=== PATIENT | female | born 1985 ===

== ENCOUNTER 2022-02-25 14:57 | Outpatient (CLI) | payer OTHER | END 2022-02-25 16:15 | disposition home or self-care (01) | LOC: PRENATAL 14:57 | PROVIDERS: ATTEND Obstetrics & Gynecology Maternal & Fetal Medicine | DX: O36.80X0 Pregnancy with inconclusive fetal viability, not applicable or unspecified (principal); O09.519 Supervision of elderly primigravida, unspecified trimester; Z3A.14 14 weeks gestation of pregnancy ==

== ENCOUNTER 2022-04-09 13:09 | Outpatient (CLI) | payer OTHER | END 2022-04-09 14:25 | disposition home or self-care (01) | LOC: PRENATAL 13:09 | PROVIDERS: ATTEND Obstetrics & Gynecology Maternal & Fetal Medicine | DX: O35.0XX0 Maternal care for (suspected) central nervous system malformation in fetus, not applicable or unspecified (principal); O35.3XX0 Maternal care for (suspected) damage to fetus from viral disease in mother, not applicable or unspecified; O09.519 Supervision of elderly primigravida, unspecified trimester; Z3A.22 22 weeks gestation of pregnancy ==

== ENCOUNTER 2022-08-23 15:59 | Inpatient (IN) | payer OTHER ==
[~2022-08-23] VITALS: Ht 152.4 cm; Wt 79.8 kg
[2022-08-23] MEDS ORDERED: ATABEX DHA 200200 MG PO (16:38)
[2022-08-23] MEDS ORDERED: PRIMROSE OIL PO (16:39)
[2022-08-23] MEDS ORDERED: GALZIN25 MG PO (16:39)
[2022-08-27] MEDS ORDERED: Procardia Xl 30MG TA PO (14:34)
== END 2022-08-27 14:57 | disposition home or self-care (01) | DRG 788 ==
LOC: LDR 15:59 → OB/GYN 15:59 → LDR 08-24 05:13 → OB/GYN 08-24 22:27
PROVIDERS: ADMIT Student in an Organized Health Care Education/Training Program; ATTEND Student in an Organized Health Care Education/Training Program
PROC: 4A1HXCZ Monitoring of Products of Conception, Cardiac Rate, External Approach (ICD-10-PCS; 2022-08-23)
PROC: 10D00Z1 Extraction of Products of Conception, Low, Open Approach (ICD-10-PCS; principal; 2022-08-24 07:30)
DX: O14.14 Severe pre-eclampsia complicating childbirth (principal); Z3A.39 39 weeks gestation of pregnancy; Z37.0 Single live birth; Z20.822 Contact with and (suspected) exposure to COVID-19

== ENCOUNTER 2025-08-24 13:37 | Outpatient (CLI) | payer OTHER ==
[~2025-08-24 13:37] MED LIST: ATABEX DHA 200200 MG PO; GALZIN25 MG PO; PRIMROSE OIL PO; Procardia Xl 30MG TA PO
== END 2025-08-24 13:43 | disposition home or self-care (01) ==
LOC: PRENATAL 13:37
PROVIDERS: ATTEND Obstetrics & Gynecology Maternal & Fetal Medicine
DX: O44.02 Complete placenta previa NOS or without hemorrhage, second trimester (principal); O09.522 Supervision of elderly multigravida, second trimester; O34.219 Maternal care for unspecified type scar from previous cesarean delivery; Z3A.21 21 weeks gestation of pregnancy